=== PATIENT | female | born 1945 | race Caucasian/White ===

== ENCOUNTER → 2021-12-10 13:45 | Outpatient (CLI) | payer MEDICARE, SELFPAY ==
--- NOTE | ~2021-12-10 | MM_ITS ---
EXAMINATION: MM screening supa BI w [facility] HISTORY: Screening TECHNIQUE: Craniocaudal and mediolateral oblique 3-D tomosynthesis images were obtained and synthetic 2-D images were generated. CAD analysis was submitted and interpreted. COMPARISON: Comparison to multiple prior studies sequentially, with oldest reviewed study dated 11/01. BREAST PARENCHYMAL COMPOSITION: The breasts are extremely dense, which lowers the sensitivity of mamm ography FINDINGS: There is no evidence of suspicious mass, calcification, or architectural distortion to sugg est malignancy in either breast. There has been no suspicious interval change. IMPRESSION: 1. No mammographic evidence of malignancy. 2. Recommend routine screening mammography in one year. BI-RADS Category 1: Negative Reviewed, dictated and finalized at location A.
== END ==
PROVIDERS: PCP Family Medicine; Visit Provider Family Medicine
DX: Z12.31 Encounter for screening mammogram for malignant neoplasm of breast (principal)
CPT/HCPCS: 77063; 77067

== ENCOUNTER → 2022-12-13 12:46 | Outpatient (CLI) | payer MEDICARE, SELFPAY ==
--- NOTE | ~2022-12-13 | MM_ITS ---
EXAMINATION: MM screening supa BI w [facility] HISTORY: Screening mammogram TECHNIQUE: Craniocaudal and mediolateral oblique 3-D tomosynthesis images were obtained and synthetic 2-D images were generated. Bilateral rotated lateral CC views. CAD analysis was submitted and interp reted. COMPARISON: 12/10/2021, 11/25/2020 bilateral screening mammogram examinations BREAST PARENCHYMAL COMPOSITION: The breasts are extremely dense, which lowers the sensitivity of mamm ography. FINDINGS: There is no evidence of suspicious mass, calcification, or architectural distortion to sugg est malignancy in either breast. There has been no suspicious interval change. IMPRESSION: 1. No mammographic evidence of malignancy. 2. Recommend routine screening mammography in one year. BI-RADS Category 1: Negative Reviewed, dictated and finalized at location A.
== END ==
PROVIDERS: PCP Family Medicine; Visit Provider Family Medicine
DX: Z12.31 Encounter for screening mammogram for malignant neoplasm of breast (principal)
CPT/HCPCS: 77063; 77067

== ENCOUNTER 2024-03-22 09:32 | Outpatient (CLI) | payer MEDICARE, SELFPAY ==
--- NOTE | ~2024-03-22 | MR_ITS ---
MRI of the cervical spine Clinical History: Neck pain Technique: Axial T2-weighted and gradient images, and sagittal T1-weighted, T2-weighted, and STIR tuyet ges were acquired. Findings: There is no fracture of cervical spine. There is minimal grade 1 retrolisthesis of C6 over C7. No suspicious bone marrow signal abnormality seen. At C2-C3, there is no disc bulge or herniation. There is minimal left facet arthropathy. No spinal ca nal stenosis, cord compression, or neural foraminal narrowing. At C3-C4, there is mild disc osteophyte complex. There is right facet arthropathy. There is probable mild right neural foraminal narrowing. Left neural foramen preserved. No canal stenosis or cord compr ession. At C4-C5, there is minimal disc bulge. There is no canal stenosis or cord compression. Probable mild right neural foraminal narrowing. Left neural foramen preserved. At C5-C6, there is moderate degenerative disc narrowing. There is mild disc osteophyte complex. There is bilateral facet arthropathy with bilateral mild neural foraminal narrowing, right worse than left . There is probable mild canal stenosis without marjorie cord compression. At C6-C7, there is advanced degenerative disc narrowing, without bulge or herniation. There is probab le minimal bilateral neural foraminal narrowing. No marjorie canal stenosis. No cord compression. No abnormal signal seen in the spinal cord. Paravertebral soft tissues are unremarkable. Impression: Mild degenerative spondylosis overall, as detailed above. Minimal grade 1 retrolisthesis of C6 over C7. Reviewed, dictated and finalized at [facility]. Impression: Mild degenerative spondylosis overall, as detailed above. Minimal grade 1 retrolisthesis of C6 over C7.
== END 2024-03-22 09:33 | disposition home or self-care (01) ==
PROVIDERS: PCP Nurse Practitioner Family; Visit Provider Nurse Practitioner Family
DX: M50.90 Cervical disc disorder, unspecified, unspecified cervical region (principal); M47.812 Spondylosis without myelopathy or radiculopathy, cervical region; M46.92 Unspecified inflammatory spondylopathy, cervical region
CPT/HCPCS: 72141

== ENCOUNTER 2024-06-07 13:13 | Outpatient (CLI) | payer MEDICARE, SELFPAY ==
--- NOTE | ~2024-06-07 | MM_ITS ---
EXAMINATION: MM screening supa BI w [facility] HISTORY: Screening mammogram TECHNIQUE: Craniocaudal and mediolateral oblique 3-D tomosynthesis images were obtained and synthetic 2-D images were generated. CAD analysis was submitted and interpreted. COMPARISON: 12/10/2021, 11/25/2020 BREAST PARENCHYMAL COMPOSITION:Dense: The breasts are extremely dense, which lowers the sensitivity o f mammography. FINDINGS: No suspicious mass, calcification, or architectural distortion are identified in either michael ast to suggest malignancy. There has been no suspicious interval change. IMPRESSION: No mammographic evidence of malignancy. Recommend routine screening mammography in one year. BI-RADS Category 1: Negative Reviewed, dictated and finalized at location M. ENT CARE PROVIDER
== END 2024-06-07 13:14 | disposition home or self-care (01) ==
LOC: MICIMG 13:14
PROVIDERS: PCP Family Medicine; Visit Provider Family Medicine
DX: Z12.31 Encounter for screening mammogram for malignant neoplasm of breast (principal)
CPT/HCPCS: 77063; 77067

== ENCOUNTER 2025-03-21 09:55 | Outpatient (CLI) | payer MEDICARE, SELFPAY ==
--- NOTE | ~2025-03-21 | DEXA_ITS ---
Bone Density Report Name: TRICIA BRAYN Age: 79 Sex: Female Ethnicity: White Date of : 1945 Indication: postmenopausal; screening for osteoporosis; height loss; hysterectomy; Referring Provider: MARQUITA, CYNDEE Good Study: Bone densitometry was performed. Exam Date: March 21, 2025 Accession number: [id number] Bone Density: Region BMD T-score Z-score Classification AP Spine(L1, L3, L4) 1.137 0.8 3.4 Normal Femoral Neck (Left) 0.730 -1.1 1.2 Osteopenia Total Hip (Left) 0.919 -0.2 1.8 Normal Femoral Neck (Right) 0.780 -0.6 1.6 Normal Total Hip (Right) 0.898 -0.4 1.6 Normal Total Hip Mean 0.908 -0.3 1.7 Normal World Health Organization criteria for BMD impression classify patients as: Normal (T-score at or above -1.0), Osteopenia (T-score between -1.0 and -2.5), or Osteoporosis (T-score at or below -2.5). 10-year Fracture Risk(1): Major Osteoporotic Fracture 12% Hip Fracture 2.3% Reported Risk Factors: [place] (), Neck BMD=0.730, BMI=24.5 (1) FRAX(R) Version 3.08. Fracture probability calculated for an untreated patient. Fracture probability may be lower if the patient has received treatment. Clinical Information Provided by Patient: Has the following medical conditions: Hysterectomy Patient maximum height was 66.5 Menopause Age: 43 Drinks caffeinated beverages Onset of menses at age 11 Number of children 2 Impression: The patient has low bone mass, based on the Left Femoral Neck T-score. The patient has an estimated ten-year risk of hip fracture of 2.3% and an estimated ten-year risk of major fracture of 12%, based on the WHO FRAX algorithm. Discussion: BONE DENSITY IS LOW AT ONE OR MORE SKELETAL SITES. This patient's lowest T-score is low at one or more skeletal sites. It meets the World Health Organization's (WHO) criteria for ?low bone mass? (T-score between -1.0 and -2.5). The patient's 10-year risk of fracture as calculated by FRAX is less than the threshold where pharmacological therapy is recommended by the National Osteoporosis Foundation (NOF). However, all treatment decisions require clinical judgment and consideration of individual patient factors, including patient preferences, comorbidities, previous drug use, risk factors not captured in the FRAX model (e.g., frailty, falls, vitamin D deficiency, increased bone turnover, interval significant decline in bone density) and possible under or overestimation of fracture risk by FRAX. The patient should follow a healthful lifestyle (good nutrition with adequate calcium and vitamin D, and appropriate weight-bearing exercise). Follow-Up: Consider repeating this study in 2 to 3 years to reassess this patient's status, or sooner if there is some new clinical indication. Reported by: JUAN FRANCISCO on 03/21/2025 10:56:00 AM. Reviewed, dictated and finalized at location A.
== END 2025-03-21 09:56 | disposition home or self-care (01) ==
LOC: MICIMG 09:55
PROVIDERS: PCP Family Medicine; Visit Provider Family Medicine
DX: Z78.0 Asymptomatic menopausal state (principal); Z13.820 Encounter for screening for osteoporosis; M85.852 Other specified disorders of bone density and structure, left thigh
CPT/HCPCS: 77080